=== PATIENT | female | born 1950 | race Caucasian/White ===

== ENCOUNTER → 2017-08-18 | Outpatient (CLI) | payer OTHER ==
[~2017-08-18] MED LIST: ASPIR-LOW81 MG PO; ASPIR-LOX325 MG PO; ASPIRIN E.C. 8181 MG PO; BENICAR; BONIVA1 MG/ML MR; FOSAMAX PO; METFORMIN; PRAVACHOL 20MG20 MG PO; PRISTIQ50 MG; VITAMIN D; ZETIA10 MG PO
== END ==
LOC: ZCOL.LAB 14:30
DX: S71.102A Unspecified open wound, left thigh, initial encounter (principal)

== ENCOUNTER → 2019-07-19 | Outpatient (CLI) | payer MEDICARE, OTHER | LOC: BHSO 13:26 | DX: F33.41 Major depressive disorder, recurrent, in partial remission (principal) | CPT/HCPCS: G0463 ==

== ENCOUNTER 2019-12-30 06:06 | Inpatient (IN) | payer MEDICARE, OTHER ==
[2019-12-30] MEDS ORDERED: FORTAMET500 M1 PO (07:42)
[2019-12-30] MEDS ORDERED: BENICAR 20MG TA20 MG PO (07:43)
[2019-12-30] MEDS ORDERED: PROTONIX 40MG T40 MG PO (07:44)
[2019-12-30] MEDS ORDERED: NAMENDA5 MG PO (07:45)
[2019-12-30] MEDS ORDERED: CRESTOR 10MG10 MG PO (07:46)
[2019-12-30] MEDS ORDERED: JARDIANCE25 PO (07:47)
[2019-12-30] MEDS ORDERED: MASON NATURAL1200 MG PO (07:47)
[2019-12-30] MEDS ORDERED: FOLIC ACID800 MCG PO (07:49)
[2019-12-30] MEDS ORDERED: FOSAMAX 70MG TA70 MG PO (07:52)
== END 2019-12-30 07:40 | disposition still patient (30) | DRG 512 ==
LOC: EUO 06:06 → SURG 07:07
PROVIDERS: ADMIT Orthopaedic Surgery
PROC: 0PSJ04Z Reposition Left Radius with Internal Fixation Device, Open Approach (ICD-10-PCS; principal; 2019-12-30)
DX: S52.502A Unspecified fracture of the lower end of left radius, initial encounter for closed fracture (principal); S52.602A Unspecified fracture of lower end of left ulna, initial encounter for closed fracture; I10 Essential (primary) hypertension; E78.5 Hyperlipidemia, unspecified; G47.33 Obstructive sleep apnea (adult) (pediatric); K21.9 Gastro-esophageal reflux disease without esophagitis; F32.9 Major depressive disorder, single episode, unspecified; F41.9 Anxiety disorder, unspecified; W18.30XA Fall on same level, unspecified, initial encounter; Y92.007 Garden or yard of unspecified non-institutional (private) residence as the place of occurrence of the external cause; Z99.81 Dependence on supplemental oxygen; Z79.4 Long term (current) use of insulin; Z79.82 Long term (current) use of aspirin; Z86.711 Personal history of pulmonary embolism; Z90.710 Acquired absence of both cervix and uterus; Z88.5 Allergy status to narcotic agent; Z88.8 Allergy status to other drugs, medicaments and biological substances
CPT/HCPCS: OP; J1100; J2704; J2795; J3010; J7120

== ENCOUNTER 2019-12-30 07:15 | Outpatient (CLI) | payer MEDICARE, OTHER ==
[2019-12-30] VITALS (7 sets, daily range): BP systolic 88–130; BP diastolic 42–87; PULSE 60–81; TEMP 98.4
[~2019-12-30] VITALS: Ht 160 cm; Wt 86.4 kg
--- NOTE | 2019-12-30 07:40 | NUR ---
Patient down to OR.
[2019-12-30] MEDS ORDERED: FORTAMET500 M1 PO (07:42)
[2019-12-30] MEDS ORDERED: BENICAR 20MG TA20 MG PO (07:43)
[2019-12-30] MEDS ORDERED: PROTONIX 40MG T40 MG PO (07:44)
[2019-12-30] MEDS ORDERED: NAMENDA5 MG PO (07:45)
[2019-12-30] MEDS ORDERED: CRESTOR 10MG10 MG PO (07:46)
[2019-12-30] MEDS ORDERED: MASON NATURAL1200 MG PO (07:47)
[2019-12-30] MEDS ORDERED: JARDIANCE25 PO (07:47)
[2019-12-30] MEDS ORDERED: FOLIC ACID800 MCG PO (07:49)
[2019-12-30] MEDS ORDERED: FOSAMAX 70MG TA70 MG PO (07:52)
--- NOTE | 2019-12-30 10:45 | NUR ---
Patient up from OR. Drowsy but arouses to voice. Daughter at bedside. LUE in sling, with splint in place. Post op VSS. Post op fluids infusing. No further needs at this time.
--- NOTE | 2019-12-30 12:25 | NUR ---
Contacted [facility] to clarify discharge order, Patient ok to D/C at any time.
--- NOTE | 2019-12-30 12:30 | NUR ---
Patient doing well since up from OR. Tolerating diet without difficulties. Has been up ambulating in room. States LUE still feels numb. Denies pain at this time. Up to restroom, voiding without difficulties.
--- NOTE | 2019-12-30 12:40 | NUR ---
Discharge instructions provided to patient and daughter. Educated on new med and med safety. Educated on block and how long it may take to wear off. All questions answered. Educated on sling and splint. Ortho office to call for follow up appointment. No further needs at this time. Patient dressed with minimal assistance. INT discontinued, catheter tip intact. Patient out with daughter via wheelchair.
== END 2019-12-30 12:50 | disposition home or self-care (01) ==
LOC: SDCO 07:15 → SURG 07:43 → SDCO 12:50
DX: S52.502A Unspecified fracture of the lower end of left radius, initial encounter for closed fracture (principal); S52.602A Unspecified fracture of lower end of left ulna, initial encounter for closed fracture; K21.9 Gastro-esophageal reflux disease without esophagitis; I10 Essential (primary) hypertension; E78.5 Hyperlipidemia, unspecified; G47.33 Obstructive sleep apnea (adult) (pediatric); F32.9 Major depressive disorder, single episode, unspecified; F41.9 Anxiety disorder, unspecified; E11.9 Type 2 diabetes mellitus without complications; Z90.710 Acquired absence of both cervix and uterus; Z88.5 Allergy status to narcotic agent; Z88.8 Allergy status to other drugs, medicaments and biological substances; Z79.82 Long term (current) use of aspirin; Z79.84 Long term (current) use of oral hypoglycemic drugs; Z86.711 Personal history of pulmonary embolism
CPT/HCPCS: OP; C1713; C1769; J0690; J2704; J7120